=== PATIENT | female | born 1995 | race Caucasian/White ===

== ENCOUNTER 2017-01-21 08:05 | Day surgery (SDCO) | payer OTHER ==
[2017-01-21 02:50] LABS: BILIRUBIN NEGATIVE (NEGATIVE); BLOOD 1+ Ery/uL (NEGATIVE); CLARITY CLEAR (CLEAR); COLOR YELLOW (YELLOW); GLUCOSE (U) NORMAL (NORMAL); KETONE (U) NEGATIVE (NEGATIVE); LEUKOCYTES NEGATIVE Leu/uL (NEGATIVE); NITRITE NEGATIVE (NEGATIVE); PROTEIN 1+ mg/dL (NEGATIVE); SPECIFIC GRAVITY >=1.030 (1.001-1.030); UROBILINOGEN 0.2 mg/dL (0.2-1.0); pH 5.5 (5.0-9.0)
[2017-01-21 02:55] LABS: BASOPHIL 0.2 % (0-2); EOSINOPHIL 1.5 % (0-5); HCT 37.9 % (37.0-47.0); HGB 12.9 g/dl (12.5-16.0); LYMPHOCYTE 30.7 % (15-48); MCH 31.9 pg (25.0-31.0); MCV 93.8 fL (78.0-100.0); MONOCYTE 6.9 % (0-12); NEUTROPHIL 60.7 % (41-80); PLT 206 K/uL (150-400); RBC 4.04 M/uL (4.20-5.40); RDW 12.8 % (11.5-14.0); WBC 9.4 K/uL (4.0-10.5)
[2017-01-21 02:57] LABS: MUCOUS TRACE; SQUAMOUS EPITHELIAL CELLS RARE; URINARY WBC RARE
[2017-01-21 03:11] LABS: ALBUMIN 4.6 g/dL (3.5-5.0); BILIRUBIN - TOTAL 0.5 mg/dL (0.1-1.0); CREATININE 0.7 mg/dL (0.5-1.0); GLOBULIN (CALCULATION) 2.4 g/dL (2.2-4.2); POTASSIUM 3.6 mmol/L (3.5-5.1)
[2017-01-21] MEDS ORDERED: NORCO 5-325 TA1 EAC1 PO (17:07)
[2017-01-21] MEDS ORDERED: CELEXA10 MG PO (17:09)
[2017-01-21] MEDS ORDERED: [UNRECOGNIZED DRUG - OTHER] PO (17:10)
== END 2017-01-21 17:53 | disposition home or self-care (01) ==
LOC: FER 08:05 → FAS 09:39 → FMS 12:51
PROVIDERS: Emergency Medicine Emergency Medical Services; ADMIT Surgery
DX: K35.80 Unspecified acute appendicitis (principal)
CPT/HCPCS: 36415; 74000; 80053; 81001; 82150; 83690; 85025; 87339; 88304; C9113; G0378; J1170; J1885; J2270; J2405; J2543; J2704; J2710; J3010; Q9967